=== PATIENT | male | born 1960 | race Caucasian/White ===

== ENCOUNTER 2023-01-03 02:46 | Observation (INO) | payer BC ==
[2023-01-03] MEDS ORDERED: NITROGLYCERIN SL TABS 0.4 MG TAB SUBLINGUAL PRN (03:35)
--- NOTE | 2023-01-03 03:41 | ED ---
Arrhythmia/Palpitations HPI - General Chief Complaint: Arrhythmia/Palpitations Stated Complaint: AFib Time Seen by Provider: 01/03/23 03:26 Source: patient, EMS Mode of arrival: EMS - History of Present Illness Initial Comments: This patient is a 62-year-old man who presents as transfer from [facility]. The patient had gone there tonight to have evaluation of palpitations and chest pressure. The patient notes that around 10 tonight he was getting ready for bed and noted that his heart started racing and he was having some pressure. He was not having any accompanying anginal symptoms. They went to the other hospital which reportedly showed what appear to be atrial fibrillation with rapid ventricular rate. Patient has no history of previous atrial fibrillation. The patient was started on Cardizem drip and he had Lovenox injection there. On arrival here, the patient denies pain or dyspnea. He does still feel some palpitations. The patient notes that he on the prior day had seen the interventional list and had steroid shot for back pain. He was found to have hyperglycemia at the other hospital. MD Complaint: palpitations -: hour(s) - Related Data Allergies Allergy/AdvReac Type Severity Reaction Status Date / Time No Known Allergies Allergy Verified 01/03/23 04:06 Review of Systems ROS Statement: Those systems with pertinent positive or pertinent negative responses have been documented in the HPI. ROS Other: All systems not noted in ROS Statement are negative. Constitutional: Denies: fever, chills, weakness Respiratory: Denies: cough, dyspnea Cardiovascular: Reports: chest pain, palpitations. Denies: dyspnea on exertion, edema, syncope Gastrointestinal: Denies: abdominal pain, nausea, vomiting, diarrhea Genitourinary: Denies: dysuria, hematuria Musculoskeletal: Reports: back pain (Chronic) Skin: Denies: rash Neurological: Denies: headache, weakness, numbness Hematological/Lymphatic: Denies: easy bleeding Past Medical History Past Medical History: Coronary Artery Disease (CAD), Hypertension History of Any Multi-Drug Resistant Organisms: None Reported Past Surgical History: No Surgical Hx Reported Past Psychological History: No Psychological Hx Reported Smoking Status: Former smoker Past Alcohol Use History: Daily Past Drug Use History: None Reported General Exam General appearance: alert, in no apparent distress Head exam: Present: atraumatic, normocephalic Eye exam: Present: normal appearance. Absent: scleral icterus, conjunctival injection ENT exam: Present: mucous membranes dry Neck exam: Present: normal inspection Respiratory exam: Present: normal lung sounds bilaterally. Absent: respiratory distress, wheezes, rales, rhonchi, stridor Cardiovascular Exam: Present: tachycardia, irregular rhythm, normal heart sounds. Absent: systolic murmur, diastolic murmur, rubs, gallop GI/Abdominal exam: Present: soft. Absent: distended, tenderness, guarding, rebound, rigid, mass Extremities exam: Present: normal inspection, normal capillary refill. Absent: pedal edema, calf tenderness Back exam: Present: normal inspection. Absent: CVA tenderness (R), CVA tenderness (L) Neurological exam: Present: alert Skin exam: Present: warm, dry, intact, normal color. Absent: rash Course Vital Signs 01/03/23 01/03/23 03:16 06:02 Temperature 98.6 F Pulse Rate 94 100 Respiratory 15 15 Rate Blood Pressure 136/96 124/69 O2 Sat by Pulse 96 94 L Oximetry Medical Decision Making - Medical Decision Making This patient is a 62-year-old man transferred here from outside hospital to have cardiology consultation related to new onset diagnosis of atrial fibrillation. He was also found to be in rapid ventricular response. The patient receiving Cardizem. He did have Lovenox shot for anticoagulation. Patient be admitted with cardiology consultation. Disposition Clinical Impression: Atrial fibrillation Disposition: ADMITTED IP TO THIS HOSP Condition: Good
[2023-01-03] MEDS ORDERED: DILTIAZEM 125 MG in SODIUM CHLORIDE 0.9% 100 ML IV SCH (03:45)
[2023-01-03] MEDS: SODIUM CHLORIDE 0.9% 1,000 ML IV SCH ×2 (04:25→16:55)
[2023-01-03 11:08] LABS: T4, Free (Free Thyroxine) 1.36 ng/dL (0.78-2.19)
--- NOTE | 2023-01-03 11:21 | P.CRDCN ---
History of Present Illness Consult date: 01/03/23 History of present illness: History of Present Illness: The patient is a 62-year-old male with a history of hypertension and hyperlipidemia who stopped smoking in July and was transferred from [facility] with symptoms of palpitations. He was noted to be in atrial fibrillation and rapid ventricular response. He had associated tightness in the chest and mild dizziness. He denies any similar symptoms in the past. According to him he underwent an echocardiogram about a year ago that was unremarkable. He is usually active physically but has been inactive recently because of back discomfort, recently underwent an epidural injection and was able to be more active. He has no exertional chest discomfort usually, no dyspnea, PND or orthopnea. He drinks large amount of caffeine and alcohol on a daily basis. He is feeling better now after initiating IV Cardizem Medications: Lisinopril, amlodipine 10 mg daily Review of Systems: Respiratory: No history of asthma, bronchitis or recent cough. GI: No nausea or vomiting . No history of peptic ulcer disease. No recent GI bleed. : No hematuria or dysuria. Nervous System: No stroke or seizure. Physical Examination: 62-year-old male, alert oriented no apparent distress ,Blood pressure with 130/7 0, Heart rate 95 Head: Normocephalic. Eyes: Sclerae nonicteric. Neck: Good carotid upstroke, no bruit, no jugular venous distention. Lungs: Clear to auscultation. Heart: Irregular rate and rhythm, S1-S2, no S3, no rub. No murmur. Abdomen: Soft nontender, positive bowel sounds no organomegaly. Extremities: No edema, intact distal pulses. Labs: Troponin 0.032, 0.033. TSH 0.184, free T4 1.36, hemoglobin 13.8, platelets 1 56,000, blood sugar 243. Creatinine 0.9. Magnesium 1.8. BNP 83, ALT 222, AST 48. Chest x-ray with no acute infiltrate EKG: EKG shows atrial fibrillation with nonspecific ST-T wave changes cannot exclude inferior wall myocardial infarction Impression: 1. Atrial fibrillation with rapid ventricle response, new onset 2. History of hypertension 3. History of hyperlipidemia 4. Daily alcohol intake Plan: 1. Start oral anticoagulation 2. Add beta kaleb and stop IV Cardizem 3. Obtain an echocardiogram with Doppler 4. I discussed with him the importance of alcohol cessation 5. His risk is 1, I will initiate anticoagulation for now and if he remains in atrial fibrillation consider cardioversion and reevaluate at that time. 6. Thank you for this consult we will follow with you. Past Medical History Past Medical History: Coronary Artery Disease (CAD), Hypertension History of Any Multi-Drug Resistant Organisms: None Reported Past Surgical History: No Surgical Hx Reported Past Psychological History: No Psychological Hx Reported Smoking Status: Former smoker Past Alcohol Use History: Daily Past Drug Use History: None Reported Medications and Allergies Allergies Allergy/AdvReac Type Severity Reaction Status Date / Time No Known Allergies Allergy Verified 01/03/23 04:06 Physical Exam Vitals: Vital Signs Temp Pulse Resp BP Pulse Ox 01/03/23 06:02 100 15 124/69 94 L 01/03/23 03:16 98.6 F 94 15 136/96 96 Intake and Output 01/02/23 01/03/23 01/03/23 22:59 06:59 14:59 Other: Weight 112.037 kg Results Cardiac Enzymes 01/03/23 01/03/23 Range/Units 03:45 06:24 Troponin I 0.032 0.033 (0.000-0.034) ng/mL Current Medications Generic Name Dose Route Start Last Admin Trade Name Freq PRN Reason Stop Dose Admin Aspirin 325 mg 01/04/23 09:00 Aspirin 325 Mg Tab PO DAILY ESTELLA Enoxaparin Sodium 110 mg 01/03/23 13:00 Enoxaparin 120 Mg/0.8 Ml Syringe SQ Q12H ESTELLA Sodium Chloride 1,000 mls @ 100 mls/hr 01/03/23 03:45 01/03/23 04:25 Saline 0.9% IV 100 mls/hr .Q10H ESTELLA Administration Diltiazem HCl 125 mg/ Sodium 125 mls @ 5 mls/hr 01/03/23 03:45 01/03/23 04:25 Chloride IV 5 mg/hr .Q24H ESTELLA 5 mls/hr Administration 5 MG/HR Nitroglycerin 0.4 mg 01/03/23 03:35 Nitroglycerin Sl Tabs 0.4 Mg Tab SUBLINGUAL Q5M PRN Chest Pain Intake and Output 01/02/23 01/03/23 01/03/23 22:59 06:59 14:59 Other: Weight 112.037 kg
[2023-01-03] MEDS: METOPROLOL TARTRATE 50 MG TAB PO SCH ×2 (12:19→21:05)
--- NOTE | 2023-01-03 12:23 | P.HPIM ---
History of Present Illness 62-year-old male came in with complaints of palpitations is accustomed that ever happened to him patient does have history of hypertension and hyperlipidemia. Patient has a low TSH with normal T4. Patient had an echocardiogram with any ago which was essentially within normal limits. Patient was limb Cardizem with controlled heart rate still in atrial fibrillation and patient came and patient is in A. fib with rapid ventricular rate. Patient does drink large amounts of caffeine and alcohol. Patient had an epidural injection yesterday at which his symptoms started. REVIEW OF SYSTEMS: CONSTITUTIONAL: No fever, no malaise, no fatigue. HEENT: No recent visual problems or hearing problems. Denied any sore throat. CARDIOVASCULAR: No chest pain, orthopnea, PND,no syncope. PULMONARY: No shortness of breath, no cough, no hemoptysis. GASTROINTESTINAL: No diarrhea, no nausea, no vomiting, no abdominal pain. NEUROLOGICAL: No headaches, no weakness, no numbness. HEMATOLOGICAL: Denies any bleeding or petechiae. GENITOURINARY: Denies any burning micturition, frequency, or urgency. MUSCULOSKELETAL/RHEUMATOLOGICAL: Denies any joint pain, swelling, or any muscle pain. ENDOCRINE: Denies any polyuria or polydipsia. The rest of the 14-point review of systems is negative. PHYSICAL EXAMINATION: GENERAL: The patient is alert and oriented x3, not in any acute distress. Well developed, well nourished. Obese HEENT: Pupils are round and equally reacting to light. EOMI. No scleral icterus. No conjunctival pallor. Normocephalic, atraumatic. No pharyngeal erythema. No thyromegaly. CARDIOVASCULAR: S1 and S2 present. No murmurs, rubs, or gallops. Irregularly irregular heart rate PULMONARY: Chest is clear to auscultation, no wheezing or crackles. ABDOMEN: Soft, nontender, nondistended, normoactive bowel sounds. No palpable organomegaly. MUSCULOSKELETAL: No joint swelling or deformity. EXTREMITIES: No cyanosis, clubbing, or pedal edema. NEUROLOGICAL: Gross neurological examination did not reveal any focal deficits. SKIN: No rashes. Assessment and plan 1 new-onset atrial fibrillation with rapid and regular rate presently rate controlled on Cardizem patient was switched to metoprolol patient will be started on oral and ideation heparin will be discontinued. The risk factor for atrial fibrillation is chronic alcoholism. -Hepatitis seconded alcoholism -Hyperlipidemia Abdomen hypertension -Obesity DVT prophylaxis: Patient is on anticoagulation Past Medical History Past Medical History: Coronary Artery Disease (CAD), Hypertension History of Any Multi-Drug Resistant Organisms: None Reported Past Surgical History: No Surgical Hx Reported Past Psychological History: No Psychological Hx Reported Smoking Status: Former smoker Past Alcohol Use History: Daily Past Drug Use History: None Reported Medications and Allergies Allergies Allergy/AdvReac Type Severity Reaction Status Date / Time No Known Allergies Allergy Verified 01/03/23 04:06 Physical Exam Vitals: Vital Signs Temp Pulse Resp BP Pulse Ox 01/03/23 12:20 89 18 128/90 97 01/03/23 06:02 100 15 124/69 94 L 01/03/23 03:16 98.6 F 94 15 136/96 96 Intake and Output 01/02/23 01/03/23 01/03/23 22:59 06:59 14:59 Other: Weight 112.037 kg Results Labs: Abnormal Lab Results - Last 24 Hours (Table) 01/03/23 Range/Units 09:02 TSH 0.184 L (0.465-4.680) mIU/L
[2023-01-03] MEDS ORDERED: ENOXAPARIN 120 MG/0.8 ML SYRINGE SQ SCH (13:00)
[2023-01-03] MEDS ORDERED: RIVAROXABAN 20 MG TAB PO SCH (17:30)
--- NOTE | 2023-01-03 18:33 | CA ---
Transthoracic Echo Report Name: Frank Mcmullen Age: 62 Gender: M : 1960 Exam Date: 01/03/2023 11:20 Exam Location: [facility] Ht (in): 76 Wt (lb): 247 Ordering Physician: Rebecca Salas Attending/Referring Phys: [id number], Maritza Taffy Puller Angelina Woodruff, RD Procedure CPT: Indications: new onset af Cardiac Hx: Technical Quality: Good Contrast 1: Total Dose (mL): Contrast 2: Total Dose (mL): MEASUREMENTS (Male / Female) Normal Values 2D ECHO LV Diastolic Diameter PLAX 4.8 cm 4.2 - 5.9 / 3.9 - 5.3 cm LV Systolic Diameter PLAX 3.2 cm IVS Diastolic Thickness 1.4 cm 0.6 - 1.0 / 0.6 - 0.9 cm LVPW Diastolic Thickness 1.4 cm 0.6 - 1.0 / 0.6 - 0.9 cm LV Relative Wall Thickness 0.6 RV Internal Dim ED PLAX 3.1 cm LA Systolic Diameter LX 3.5 cm 3.0 - 4.0 / 2.7 - 3.8 cm LA Volume 72.0 cm??? 18 - 58 / 22 - 52 cm??? M-MODE Aortic Root Diameter MM 4.0 cm AV Cusp Separation MM 3.1 cm DOPPLER AV Peak Velocity 103.1 cm/s AV Peak Gradient 4.3 mmHg MV Area PHT 8.0 cm??? MV Deceleration Time 130.5 ms TR Peak Velocity 220.7 cm/s TR Peak Gradient 19.5 mmHg Right Ventricular Systolic Press 24.1 mmHg FINDINGS Left Ventricle Left ventricular ejection fraction is estimated at 40-45 %. Left ventricular cavity size normal. Moderate LVH. Global hypokinesis Right Ventricle Normal right ventricular size and function. Right Atrium Normal right atrial size. Left Atrium Moderately increased left atrial volume. Mildly increased left atrial area. Mitral Valve Structurally normal mitral valve. Mild mitral regurgitation. Aortic Valve Trileaflet aortic valve. No aortic valve stenosis or regurgitation. Tricuspid Valve Structurally normal tricuspid valve. Mild tricuspid regurgitation. Pulmonic Valve Structurally normal pulmonic valve. Trace to mild pulmonic regurgitation. Pericardium Normal pericardium. No pericardial effusion. Aorta Moderate aortic dilatation at the level of the sinuses of valsalva 40 mm CONCLUSIONS 1. Moderately impaired systolic function with global hypokinesis 2. Mild mitral and tricuspid regurgitation Previewed by: Dr. Alicia Moore MD (Electronically Signed) Final Date: 03 January 2023 18:32
[2023-01-04] MEDS: SODIUM CHLORIDE 0.9% 1,000 ML IV SCH (05:55)
[2023-01-04] MEDS ORDERED: PANTOPRAZOLE 40 MG TABLET PO SCH (07:30)
[2023-01-04 07:50] LABS: HCT 46.8 % (39.0-53.0); HGB 15.3 gm/dL (13.0-17.5); MCH 32.5 pg (25.0-35.0); MCHC 32.6 g/dL (31.0-37.0); MCV 99.6 fL (80.0-100.0); Mean Platelet Volume 8.1; Platelet Count 162 k/uL (150-450); RDW 13.1 % (11.5-15.5); WBC 8.3 k/uL (3.8-10.6)
[2023-01-04 08:10] LABS: African American GFR (CKD) >90 (>60 ml/min/1.73 sqM); Anion Gap 9 mmol/L; Blood Urea Nitrogen 17 mg/dL (9-20); Calcium 8.8 mg/dL (8.4-10.2); Carbon Dioxide 23 mmol/L (22-30); Chloride 102 mmol/L (98-107); Glucose 96 mg/dL (74-99); Non-African American GFR(CKD) >90 (>60 ml/min/1.73 sqM); Potassium 4.3 mmol/L (3.5-5.1); Sodium 134 mmol/L (137-145)
[2023-01-04] MEDS ORDERED: ASPIRIN 325 MG TAB PO SCH (09:00)
[2023-01-04] MEDS: METOPROLOL TARTRATE 50 MG TAB PO SCH (09:29)
[2023-01-04 09:32] VITALS: RESP 16; TEMP 98.3
[2023-01-04 12:05] VITALS: BP 117/76; PULSE 84
--- NOTE | 2023-01-04 16:14 | P.PN ---
Subjective Progress Note Date: 01/04/23 PROGRESS NOTE The patient is a 62-year-old male with a history of hypertension and hyperlipidemia who stopped smoking in July and was transferred from [facility] with symptoms of palpitations. He was noted to be in atrial fibrillation and rapid ventricular response. He had associated tightness in the chest and mild dizziness. He denies any similar symptoms in the past. According to him he underwent an echocardiogram about a year ago that was unremarkable. He is usually active physically but has been inactive recently because of back discomfort, recently underwent an epidural injection and was able to be more active. He has no exertional chest discomfort usually, no dyspnea, PND or orthopnea. He drinks large amount of caffeine and alcohol on a daily basis. He is feeling better now after initiating IV Cardizem January 04: The patient feels better today, he continues to be in atrial fibrillation with controlled ventricular response. He denies any chest discomfort, dizziness or palpitations. His echocardiogram showed a moderately impaired systolic function of unknown duration or etiology. The duration of his atrial fibrillation is unclear. Medications: Lopressor 50 mg twice a day,Xarelto 20 mg daily,Zetia 10 mg daily PHYSICAL EXAMINATION: Blood pressure 117/76 heart rate 84 LUNGS: Clear to auscultation HEART: Irregular rate and rhythm, S1, S2. No S3. No systolic murmur ABDOMEN: Soft, nontender, no organomegaly EXTREMETIES: No edema LAB: Potassium 4.3, BUN 17, creatinine 0.73. Hemoglobin 15.3. IMPRESSION: 1. Atrial fibrillation of unknown duration, rate controlled, anticoagulation started 2. Hyperlipidemia 3. Cardiomyopathy of unclear etiology, could be tachycardia induced 4. History of alcohol intake PLAN: 1. Alcohol cessation 2. Increase activity 3. Probable DC home today 4. And follow-up as an outpatient for further cardiac evaluation and probable admission to undergo cardioversion to restore sinus mechanism Objective - Vital Signs Vital signs: Vital Signs Temp 98.3 F 01/04/23 08:00 Pulse 84 01/04/23 12:00 Resp 16 01/04/23 12:00 BP 117/76 01/04/23 12:00 Pulse Ox 94 L 01/04/23 12:00 FiO2 Intake & Output 01/03/23 01/04/23 01/04/23 18:59 06:59 18:59 Intake Total 200 420 Balance 200 420 Weight 112.037 kg Intake: Oral 200 420 Other: Voiding Method Toilet Toilet # Voids 1 2 - Labs CBC & Chem 7: 01/04/23 07:24 01/04/23 07:15 Labs: Abnormal Lab Results - Last 24 Hours (Table) 01/04/23 Range/Units 07:15 Sodium 134 L (137-145) mmol/L
[2023-01-04 18:30] LABS: Chol/HDL Ratio 3.96 Ratio; LDL Cholesterol,Calculated 110.1 mg/dL
--- NOTE | 2023-01-05 22:23 | P.DS ---
Providers Date of admission: 01/03/23 03:36 Attending physician: Dontae Orr MD Consults: 01/03/23 03:36 Consult Physician Routine Consulting Provider: Ahsan Nails Consult Reason/Comments: new onset atrial fibrillation/RVR Do you want consulting provider notified?: Yes Primary care physician: [facility] Course: Final Diagnosis -Atrial fibrillation with rapid and regular rate, new onset vs. 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 -Hyperlipidemia -Hypertension -Obesity -Subclinical hyperthyroidism Discharge Disposition Patient is stable for discharge home. Has been cleared by cardiology for follow up in the office with Dr Moore in 1 week. Patient has been started on oral anticoagulation with xarelto. Amlodipine and losartan have been discontinued due to low normal blood pressure, at this time patient has been started on metoprolol 50 mg by mouth twice a day. Patient counseled on importance of total alcohol cessation as this does increase his risk for atrial fibrillation to occur. Patient to f/u with cardiology and may require cardioversion. Patient had low TSH with normal T4 recommend to follow up thyroid studies outpatient. Hospital Course This is a 62-year-old male with history of hypertension, hyperlipdemia, obesity and chronic alcoholism, came in with complaints of palpitations which he states has never happened before. Patient has a low TSH with normal T4. Patient had an echocardiogram previously which was essentially within normal limits. Patient was admitted to the hospital with consult placed to cardiology, EKG does show atrial fibrillation with rapid ventricular rate and patient was started on IV heparin and IV cardizem. Patient does drink large amounts of caffeine and alcohol. Patient had an epidural injection yesterday at which his symptoms started. Patients heart rate did improve to the 70-80s however he does remain in atrial fibrillation. He was taken off the IV medication and started on metoprolol for rate control and anticoagulation with eliquis. Patient is counseled extensively on the importance of alcohol cessation. Echocardiogram is done reveals an EF of 40-45% with global hypokinesis, moderate LVH, mild MR, mild TR. Patient was started on aldactone also. His lipid panel shows triglycerides of 242, cholesterol of 212, LDL of 48 and HDL of 53. Cardiology recommending to follow up in the office for further cardiac evaluation and possible cardioversion. Patient is currently denying chest pain, denying shortness of breath. No dizziness or lightheadedness. No n/v/d. Patients lungs are clear S1 S2 auscultated, abdomen is soft and nontender. Patient remains in atrial fibrillation on discharge however rate is controlled and he is anticoagulated. Please see medication reconciliation for a list of current medication. Thank you for allowing us to participate in the care of this patient. The impression and plan of care has been dictated by Jenny Frye, Nurse Practitioner as directed. Dr. Vinod MD I have performed a history and physical examination and medical decision making of this patient, discussed the same with the dictator, and agree with the dictators assessment and plan as written, documented as a scribe. Based on total visit time, I have performed more than 50% of this visit. Patient Condition at Discharge: Stable Plan - Discharge Summary Discharge Rx Participant: Yes New Discharge Prescriptions: New Metoprolol Tartrate [Lopressor] 50 mg PO BID #60 tab Pantoprazole [Protonix] 40 mg PO AC-BRKFST #30 tab Thiamine [Vitamin B-1] 100 mg PO DAILY #30 tablet Folic Acid 1 mg PO DAILY #30 tablet Rivaroxaban [Xarelto] 20 mg PO W/SUPPER #30 tab Continue Ezetimibe [Zetia] 10 mg PO DAILY Discontinued amLODIPine [Norvasc] 5 mg PO DAILY Losartan [Cozaar] 25 mg PO DAILY Discharge Medication List Ezetimibe [Zetia] 10 mg PO DAILY 01/03/23 [History] Folic Acid 1 mg PO DAILY #30 tablet 01/04/23 [Rx] Metoprolol Tartrate [Lopressor] 50 mg PO BID #60 tab 01/04/23 [Rx] Pantoprazole [Protonix] 40 mg PO AC-BRKFST #30 tab 01/04/23 [Rx] Rivaroxaban [Xarelto] 20 mg PO W/SUPPER #30 tab 01/04/23 [Rx] Thiamine [Vitamin B-1] 100 mg PO DAILY #30 tablet 01/04/23 [Rx] Follow up Appointment(s)/Referral(s): Alicia Moore MD [STAFF PHYSICIAN] - 1 Week Conrad Hatch NPC [Primary Care Provider] - 1-2 days Ambulatory/Diagnostic Orders: Basic Metabolic Panel [LAB.AMB] Time Frame: 3 Days, Location: None Selected Magnesium [LAB.AMB] Location: None Selected Patient Instructions/Handouts: A-fib (Atrial Fibrillation) (DC), Heart Palpitations (ED) Activity/Diet/Wound Care/Special Instructions: Recommend to follow up with TSH outpatient Need to completely avoid alcohol Follow up with cardiology in 1 to 2 weeks Repeat labs in 2 to 3 days. Discharge Disposition: HOME SELF-CARE
== END 2023-01-04 16:07 | disposition home or self-care (01) ==
LOC: EC 02:46 → 3SCARD 03:36
PROVIDERS: ADMIT Internal Medicine; ATTEND Internal Medicine
DX: I48.0 Paroxysmal atrial fibrillation (principal); K70.10 Alcoholic hepatitis without ascites; I42.9 Cardiomyopathy, unspecified; E78.5 Hyperlipidemia, unspecified; I10 Essential (primary) hypertension; E66.9 Obesity, unspecified; Z68.30 Body mass index [BMI] 30.0-30.9, adult; E05.80 Other thyrotoxicosis without thyrotoxic crisis or storm; I25.10 Atherosclerotic heart disease of native coronary artery without angina pectoris; Z87.891 Personal history of nicotine dependence; Z79.01 Long term (current) use of anticoagulants; Z79.899 Other long term (current) drug therapy
CPT/HCPCS: 96361 ×3; 96365; 96366; 99285; 36415; 94760; 93306; 84439; 80061; 80048; 84443; 84484; 85027; G0378 ×2

== ENCOUNTER 2024-11-10 06:16 | Day surgery (SDC) | payer BC ==
[~2024-11-10 06:16] MED LIST: fentaNYL (PF) 50 MCG/ML 2 ML AMP IV PRN
[2024-11-10] MEDS: SODIUM CHLORIDE 0.9% 1,000 ML IV SCH (07:32)
[2024-11-10] MEDS: IV FLUID CONTINUATION 1,000 ML IV ONE (07:33)
[2024-11-10] MEDS ORDERED: HEPARIN SODIUM,PORCINE 10,000 UNIT/ML 1 ML VIAL ONE (08:30)
[2024-11-10] MEDS ORDERED: PHENYLEPHRINE-0.9% NACL SYG 1,000 MCG/10 ML SYRINGE ONE (08:30)
[2024-11-10] MEDS ORDERED: SUCCINYLCHOLINE CHLORIDE 200 MG/10 ML VIAL IV ONE (08:30)
[2024-11-10] MEDS ORDERED: LIDOCAINE 1% INJ 10MG/ML (20 ML MDV) ONE (08:30)
[2024-11-10] MEDS ORDERED: MIDAZOLAM 2 MG/2 ML VIAL ONE (08:30)
[2024-11-10] MEDS ORDERED: fentaNYL (PF) 50 MCG/ML 2 ML AMP ONE (08:30)
[2024-11-10] MEDS ORDERED: PROPOFOL 10 MG/ML 20 ML VIAL IV ONE (08:30)
[2024-11-10] MEDS ORDERED: ISOPROTERENOL 250 MCG/1.25 ML SYR IV ONE (08:30)
--- NOTE | 2024-11-10 08:47 | P.HPCAR ---
History of Present Illness This is Dr. Cazares dictating an H/P on this patient The patient was interviewed and examined IMPRESSION / ASSESSMENT: Paroxysmal A-fib with RVR, symptomatic Atrial fibrillation associated cardiomyopathy 17% A-fib burden Factor V Leyden deficiency and history of pulmonary embolism PLAN: Heparin dose was calculated, 14 mg/kg infusion and 80 mg/kg bolus with the goal of maintaining ACT above 350 seconds consistently Increased frequency of ACT checks Continue Xarelto uninterrupted HPI Patient continues to have episodes of atrial fibrillation. He stated that this morning he had an episode of atrial fibrillation which was symptomatic Denies any angina denies any loss of consciousness Denies any fever chills cough expectoration ROS: No fever chills or rigors, no cough, phlegm or expectoration, no nausea, vomiting or diarrhea, no hematuria, dysuria, no musculoskeletal complaints, no strokes or seizures, no skin lesions. EXAMINATION: Blood pressure 133/79 mmHg pulse rate 151 beats a minute No murmurs no gallop no rub Clear lungs no rhonchi no crackles No JVD Soft abdomen nontender No lower extremity edema REVIEW OF LABS, ECG & MEDICAL DATA Medications include Toprol-XL 50 mg twice daily, Repatha and Xarelto 20 mg daily TSH 1.2 Physical Exam Vitals: Vital Signs Temp Pulse Resp BP BP Pulse Ox 11/10/24 07:25 98.1 F 151 H 16 135/98 133/79 98 Intake and Output 11/09/24 11/10/24 11/10/24 22:59 06:59 14:59 Intake Total 50 Balance 50 Intake: IV 50 Other: Weight 109.3 kg Past Medical History Past Medical History: Atrial Fibrillation, Coronary Artery Disease (CAD), GERD/Reflux, Hyperlipidemia, Hypertension, Pulmonary Embolus (PE) Additional Past Medical History / Comment(s): Chronic back pain, neuropathy to feet. Factor V leiden History of Any Multi-Drug Resistant Organisms: None Reported Past Surgical History: No Surgical Hx Reported Additional Past Surgical History / Comment(s): varicose vein surgery. colonoscopy. pain shots to back w/twilight Past Anesthesia/Blood Transfusion Reactions: No Reported Reaction Smoking Status: Former smoker - Past Family History Father Family Medical History: Cancer Additional Family Medical History / Comment(s): leukemia Mother Family Medical History: Osteoarthritis (OA) Physical Examination Vital Signs Temp Pulse Resp BP BP Pulse Ox 11/10/24 07:25 98.1 F 151 H 16 135/98 133/79 98 Intake and Output 11/09/24 11/10/24 11/10/24 22:59 06:59 14:59 Intake Total 50 Balance 50 Intake: IV 50 Other: Weight 109.3 kg Results Current Medications Generic Name Dose Route Start Last Admin Trade Name Freq PRN Reason Stop Dose Admin Fentanyl Citrate 50 mcg 11/10/24 06:00 Fentanyl (Pf) 50 Mcg/Ml 2 Ml Amp IV 11/11/24 05:59 Q3M PRN Phase I - Pain Control Sodium Chloride 1,000 mls @ 20 mls/hr 11/10/24 06:00 11/10/24 07:32 Saline 0.9% IV 12/10/24 05:59 20 mls/hr .Q24H ESTELLA Administration Lactated Ringer's 1,000 mls @ 20 mls/hr 11/10/24 06:00 Lactated Ringers IV 12/10/24 05:59 .Q24H ESTELLA Intake and Output 11/09/24 11/10/24 11/10/24 22:59 06:59 14:59 Intake Total 50 Balance 50 Intake: IV 50 Other: Weight 109.3 kg Patient Weight 11/11/24 06:59 Weight 109.3 kg
[2024-11-10] MEDS: IOPAMIDOL-370 100ML BTL INJ ONE (08:50)
[2024-11-10] MEDS: HEPARIN SOD,PORK IN 0.45% NACL 25,000 UNIT in 0.45% NACL 1 250ML.BAG IV ONE (09:13)
[2024-11-10] MEDS: LIDOCAINE 1% INJ 10MG/ML (20 ML MDV) SQ ONE (09:15)
[2024-11-10] MEDS: HEPARIN SODIUM,PORCINE 10,000 UNIT in SODIUM CHLORIDE 0.9% 1,000 ML IRRIGATION ONE (10:37)
[2024-11-10] MEDS: HEPARIN SODIUM,PORCINE (1 ML) 2,500 UNIT in SODIUM CHLORIDE 0.9% 250 ML IRRIGATION ONE (10:37)
[2024-11-10] MEDS: ROPIVACAINE 5 MG/ML 30 ML VIAL MISCELLANE ONE (10:55)
[2024-11-10] MEDS ORDERED: ACETAMINOPHEN TAB 325 MG TAB PO PRN (11:08)
--- NOTE | 2024-11-10 11:37 | P.EPPROC ---
- EP Procedure Note Electrophysiology Procedure Note: PROCEDURE A. fib ablation with PVI and left atrial septal ablation DIAGNOSIS Atrial fibrillation, symptomatic, and associated with mild cardiomyopathy RESULT No left atrial appendage mass seen on intracardiac echo Calcified page of the left main and LAD/circumflex on intracardiac echo Successful A. fib ablation/pulmonary vein isolation of all veins using cryo- ablation Complete entrance block in all 4 veins confirmed No evidence for phrenic nerve injury Esophageal deflection YES, left-sided esophagus PROCEDURE DETAILS Written informed consent prior to procedure. Patient brought to the EP lab. General anesthesia given. Heparin administered. A city maintained above 300 seconds Both groins prepped and draped per protocol and venous sheaths placed. Esophagus intubated, circa catheter for temperature monitoring an endoscope for possible esophageal deflection. Phrenic nerve monitoring performed. Esophageal temperature monitoring performed. Esophageal deflection performed if circa catheter overlapping with the balloon or circa temperature less than 27.5°C Intracardiac echocardiography performed. Pericardium evaluated. Left atrial appendage evaluated. Left atrium evaluated along with pulmonary veins Transseptal catheterization performed under fluoroscopic guidance and intracardiac echo guidance Cryoablation sheath exchanged, balloon catheter along with achieve catheter placed in the left atrium. Pulmonary veins isolated in the following sequence: Left superior pulmonary vein followed by left inferior pulmonary vein, followed by right inferior pulmonary vein and lastly right superior pulmonary vein. Phrenic nerve stimulation along with capture thresholds within the SVC and right superior pulmonary vein to identify the phrenic nerve proximity to the cryo- balloon. Pulmonary veins isolated and confirmed with entrance and exit block. Phrenic nerve integrity confirmed at the end of the procedur Ablation of the left atrial septum performed with cannulation of the superior branch of the right inferior to achieve ablation of the posterior septum of the left atrium. Ablation of electrograms confirmed Diagnostic catheters for the high right atrium, His bundle, coronary sinus placed. LA and RA pressures recorded LA pressure: 19/01/12 Diagnostic EP study with coronary sinus pacing and recording Baseline measurements: Sinus cycle length 794 ms, GA interval 131 ms, QRS 121 ms, QT 414 ms AH 95 ms and HV interval 35 ms Sinus node recovery times were 1752, 1466 and 1771 ms Prolonged corrected sinus node recovery times AV node Wenckebach block 370 ms No evidence for slow pathway conduction but stimulation was performed from the coronary sinus and from the high right atrium both on and off Isopril No inducible atrial fibrillation Venous sheaths were removed and hemostasis assured with a closure device. Patient extubated and transferred to recovery PROCEDURES PERFORMED Diagnostic EP study CS pacing and recording Left and right transseptal catheterization Catheter the mapping of the tachycardia Intracardiac echocardiography Pulmonary vein isolation with transseptal and comprehensive EPS, [id number] Drug infusion, +[id number] Linear ablation, left atrium septum, +[id number]
--- NOTE | 2024-11-10 11:40 | P.PRLE ---
RE: Frank Mcmullen Dear Dr. Irena Marie underwent ablation for atrial fibrillation today. He he has symptomatic atrial fibrillation with associated mild cardiomyopathy He also has a history of pulmonary embolism and factor V Leyden deficiency At this time I will continue metoprolol succinate and will continue Xarelto. Anticoagulation should be left uninterrupted even temporarily for the next 2 months, post A-fib ablation, to minimize stroke risk Thank you for entrusting me with the care of the patient Warm regards Sincerely Tomas Cazares
[2024-11-10] MEDS: DEXAMETHASONE SOD PHOSPHATE 4 MG/ML 1 ML VIAL IV ONE ×2 (12:39→12:40)
[2024-11-10] MEDS: ONDANSETRON 4 MG/2 ML VIAL IVP ONE (12:40)
[2024-11-10] MEDS: ACETAMINOPHEN IV (For NPO) 1,000 MG in EMPTY BAG 1 BAG IVPB ONE (13:23)
[2024-11-10] MEDS: GABAPENTIN 300 MG CAP PO SCH (15:33)
[2024-11-10] MEDS: LACTATED RINGERS 1,000 ML IV SCH (15:34)
[2024-11-10] MEDS: RIVAROXABAN 20 MG TAB PO SCH (17:05)
[2024-11-10] MEDS ORDERED: METOPROLOL SUCCINATE (ER) 50 MG TAB.ER.24H PO SCH (21:00)
[2024-11-11] MEDS: METOPROLOL SUCCINATE (ER) 50 MG TAB.ER.24H PO SCH
[2024-11-11] MEDS: GABAPENTIN 300 MG CAP PO SCH
--- NOTE | 2024-11-11 09:45 | DS ---
DISCHARGE SUMMARY Frank Mcmullen has paroxysmal atrial fibrillation. He underwent successful Afib ablation yesterday. He has done well overnight. Yesterday, his throat was a little sore, today it is a lot better. He has mild weak discomfort in the chest, but his 12-lead EKG is completely normal. He is very comfortable. The pain is more pleuritic in nature. Blood pressure is in the normal range. IMPRESSION: Paroxysmal atrial fibrillation, status post atrial fibrillation ablation. PLAN: Continue Eliquis. Continue all other medications unchanged. I explained to him not to stop Eliquis even temporarily for the next 2 months. All instructions were given. I will see him again in about a week. MMODL / IJN: [id number] /
[2024-11-11 11:51] VITALS: BP 132/81; PULSE 69; RESP 20; TEMP 97.7
== END 2024-11-11 10:02 | disposition home or self-care (01) ==
LOC: CATHEP 06:16 → 6NMEDSUR 12:09 → CATHEP 11-11 10:02
PROVIDERS: ATTEND Internal Medicine Clinical Cardiac Electrophysiology
DX: I25.10 Atherosclerotic heart disease of native coronary artery without angina pectoris (principal); I48.0 Paroxysmal atrial fibrillation; I42.9 Cardiomyopathy, unspecified; D68.51 Activated protein C resistance; I10 Essential (primary) hypertension; E78.5 Hyperlipidemia, unspecified; Z86.711 Personal history of pulmonary embolism; Z79.01 Long term (current) use of anticoagulants; Z87.891 Personal history of nicotine dependence; Z82.61 Family history of arthritis; Z79.899 Other long term (current) drug therapy
CPT/HCPCS: 93623; 93656; 93657; 86900; 86901; 84443; 86850; C1894; C1769; C1760 ×3; C1730 ×2; C1759; C1733; C1766; J1644 ×3; J2003; J2795; J0131; Q9967